=== PATIENT | male | born 1975 | race Caucasian/White ===

== ENCOUNTER 2018-08-14 08:17 | Inpatient (IN) | payer BC, MEDICAID ==
[~2018-08-14] VITALS: Ht 188 cm; Wt 130.4 kg
[~2018-08-14 08:17] MED LIST: FAMO-128 PO
[2018-08-14 09:03] LABS: BASOPHILS % (AUTO) 0.4 % (0-1); EOSINOPHILS # (AUTO) 0.2 X10'3 (0-0.9); EOSINOPHILS % (AUTO) 3.9 % (0-6); HEMATOCRIT 49.5 % (42.0-52.0); HEMOGLOBIN 17.1 g/dl (14.0-17.9); LYMPHOCYTES # (AUTO) 1.5 X10'3 (1.1-4.8); LYMPHOCYTES % (AUTO) 25.5 % (21-51); MEAN CORPUSCULAR HEMOGLOBIN 30.2 PG (27.0-31.0); MEAN CORPUSCULAR HGB CONC 34.6 g/dL (33.0-36.5); MEAN CORPUSCULAR VOLUME 87.2 FL (78-98); MEAN PLATELET VOLUME 8.7 FL (7.4-10.4); MONOCYTES # (AUTO) 0.7 X10'3 (0-0.9); MONOCYTES % (AUTO) 11.5 % (2-12); NEUTROPHILS # (AUTO) 3.5 X10'3 (1.8-7.7); NEUTROPHILS % (AUTO) 58.7 % (42-75); PLATELET COUNT 198 X10'3 (140-440); RED BLOOD COUNT 5.67 X10'6 (4.70-6.10); WHITE BLOOD COUNT 5.9 X10'3 (4.5-11.0)
[2018-08-14 09:09] LABS: PARTIAL THROMBOPLASTIN TIME 29 SECONDS (22-32)
[2018-08-14 09:21] LABS: ALANINE AMINOTRANSFERASE 88 U/L (12-78); ALBUMIN 3.6 G/DL (3.4-5.0); ALBUMIN/GLOBULIN RATIO 1.1 (1.1-1.5); ALKALINE PHOSPHATASE 64 IU/L (46-116); ANION GAP 9 (8-16); ASPARTATE AMINO TRANSFERASE 38 U/L (10-37); BILIRUBIN,TOTAL 0.6 MG/DL (0.1-1.0); BLOOD UREA NITROGEN 18 MG/DL (7-18); BUN/CREATININE RATIO 19.1 (5.4-32.0); CALCIUM 8.9 MG/DL (8.5-10.1); CHLORIDE 104 MMOL/L (99-107); CREATININE 0.94 MG/DL (0.60-1.10); GLUCOSE 106 MG/DL (70-104); POTASSIUM 3.8 MMOL/L (3.5-5.1); SODIUM 138 MMOL/L (135-145); TOTAL CARBON DIOXIDE 24.6 MMOL/L (24-32); eGFR 88 ML/MIN
[2018-08-14] MEDS ORDERED: aspirin 81mg tab.chew PO ONE (09:45)
[2018-08-14] MEDS ORDERED: nitroGLYCERIN 0.4mg/hour patch TD ONE (09:45)
[2018-08-14] MEDS ORDERED: HYDROcodone/acetaminophen 5mg/325mg tablet PO PRN (09:55)
[2018-08-14] MEDS ORDERED: furosemide 10 MG/1 ML 10ml inj IV ONE (09:55)
[2018-08-14] MEDS ORDERED: nitroGLYCERIN 0.4mg SUBLingual tab SL PRN ×2 (09:55→13:40)
[2018-08-14] MEDS ORDERED: magnesium hydroxide 30ml (MOM) UD suspension PO PRN (09:55)
[2018-08-14] MEDS ORDERED: acetaminophen 325mg tablet PO PRN (09:55)
[2018-08-14] MEDS ORDERED: mag hydrox/Alum hydrox/simeth 30ml oral suspension PO PRN (09:55)
[2018-08-14] MEDS ORDERED: ondansetron/PF 4mg/2ml inj IV PRN (09:55)
[2018-08-14] MEDS ORDERED: morphine 4 MG/ML inj SYRINge IV PRN ×2 (09:55)
[2018-08-14] MEDS ORDERED: LIVER CLEANSE (10:14)
[2018-08-14] MEDS ORDERED: MULT-955 PO (10:14)
[2018-08-14] MEDS ORDERED: GARL600T2 PO (10:15)
[2018-08-14 10:24] LABS: HEMOGLOBIN A1C 5.3 % (4.5-6.2)
[2018-08-14 11:30] VITALS: BP 131/91
--- NOTE | 2018-08-14 11:30 | NUR ---
pt arrived via gurney with one staff. Pt walked to bed from door way. orientated to room call light with in reach bed in lowest position.
[2018-08-14] MEDS ORDERED: regadenoson 0.4mg/5ml syringe IV PRN (13:40)
[2018-08-14] MEDS ORDERED: aminophylline 250mg/10ml inj. IV PRN (13:40)
[2018-08-14] MEDS ORDERED: metoprolol tartrate 1mg/ml inj IV PRN (13:40)
--- NOTE | 2018-08-14 18:22 | NUR ---
Problems reprioritized. Patient report given, questions answered & plan of care reviewed with Antoine HAGER.
[2018-08-14 18:40] VITALS: BP 121/83
[2018-08-14] MEDS: furosemide 20 MG/2 ML vial IV SCH (20:01)
[2018-08-14] MEDS: metoprolol tartrate 50mg tablet PO SCH (20:01)
[2018-08-15] VITALS (11 sets, daily range): BP systolic 114–145; BP diastolic 77–94
[2018-08-15 05:33] LABS: ALBUMIN 3.6 G/DL (3.4-5.0); ANION GAP 9 (8-16); BLOOD UREA NITROGEN 19 MG/DL (7-18); BUN/CREATININE RATIO 16.8 (5.4-32.0); CALCIUM 8.6 MG/DL (8.5-10.1); CHLORIDE 100 MMOL/L (99-107); CHOL/HDL RATIO 4.5 (0.00-4.99); CHOLESTEROL 166 MG/DL (0-200); CREATININE 1.13 MG/DL (0.60-1.10); GLUCOSE 95 MG/DL (70-104); HDL CHOLESTEROL 37 MG/DL (35-60); LDL CHOLESTEROL 111 MG/DL (50-100); SODIUM 137 MMOL/L (135-145); TOTAL CARBON DIOXIDE 27.8 MMOL/L (24-32); TRIGLYCERIDES 179 MG/DL (20-135); eGFR 71 ML/MIN
[2018-08-15 05:36] LABS: POTASSIUM 3.6 MMOL/L (3.5-5.1)
--- NOTE | 2018-08-15 06:21 | NUR ---
Problems reprioritized. Patient report given, questions answered & plan of care reviewed with Addendum: 08/15/18 at 0621 by Ray George RN Amended: Links added.
[2018-08-15 06:24] LABS: HEMATOCRIT 49.4 % (42.0-52.0); HEMOGLOBIN 17.2 g/dl (14.0-17.9); MEAN CORPUSCULAR HEMOGLOBIN 30.5 PG (27.0-31.0); MEAN CORPUSCULAR VOLUME 87.4 FL (78-98); RED BLOOD COUNT 5.65 X10'6 (4.70-6.10); WHITE BLOOD COUNT 8.8 X10'3 (4.5-11.0)
[2018-08-15 06:25] LABS: BASOPHILS % (AUTO) 0.3 % (0-1); EOSINOPHILS # (AUTO) 0.3 X10'3 (0-0.9); LYMPHOCYTES # (AUTO) 2.2 X10'3 (1.1-4.8); LYMPHOCYTES % (AUTO) 24.9 % (21-51); MEAN CORPUSCULAR HGB CONC 34.9 g/dL (33.0-36.5); MEAN PLATELET VOLUME 9.2 FL (7.4-10.4); MONOCYTES # (AUTO) 0.8 X10'3 (0-0.9); MONOCYTES % (AUTO) 9.3 % (2-12); NEUTROPHILS # (AUTO) 5.5 X10'3 (1.8-7.7); NEUTROPHILS % (AUTO) 62.5 % (42-75); PLATELET COUNT 199 X10'3 (140-440); RED CELL DISTRIBUTION WIDTH 13.1 % (11.5-14.5)
[2018-08-15] MEDS ORDERED: enoxaparin 40mg/0.4ml syringe SUBCUT SCH (08:00)
[2018-08-15] MEDS: furosemide 20 MG/2 ML vial IV SCH (08:00)
[2018-08-15] MEDS ORDERED: aspirin 81mg tablet.DR PO SCH (08:00)
[2018-08-15] MEDS: metoprolol tartrate 50mg tablet PO SCH (08:00)
[2018-08-15] MEDS ORDERED: nitroGLYCERIN 0.4mg/hour patch TD SCH (08:00)
[2018-08-15] MEDS ORDERED: aminophylline inj. 10 ML IV ONE (09:08)
[2018-08-15] MEDS ORDERED: regadenoson 0.4mg/5ml syringe IV ONE (09:08)
[2018-08-15] MEDS ORDERED: METO50TA16 PO (14:14)
[2018-08-15] MEDS ORDERED: SPIR25TA PO (14:14)
[2018-08-15] MEDS ORDERED: ASPI-1071 PO (14:14)
[2018-08-15] MEDS ORDERED: ATOR10TA PO (14:15)
--- NOTE | 2018-08-15 14:49 | NUR ---
D/C INSTRUCTIONS REVIEWED WITH PT. PT AGREES WITH D/C WAITING FOR RIDE.
--- NOTE | 2018-08-15 15:13 | NUR ---
PT ESCORTED TO LOBBY IN W/C WITH ONE STAFF WITH ALL BELONGINGS.
== END 2018-08-15 15:11 | disposition home or self-care (01) | DRG 198 ==
LOC: ER 08:18 → ED HOLD 09:53 → SUR 3N 11:30
PROVIDERS: ADMIT Internal Medicine; ATTEND Family Medicine
PROC: 4A02XM4 Measurement of Cardiac Total Activity, External Approach (ICD-10-PCS; principal; 2018-08-15)
PROC: 3E033HZ Introduction of Radioactive Substance into Peripheral Vein, Percutaneous Approach (ICD-10-PCS; 2018-08-15)
DX: I20.9 Angina pectoris, unspecified (principal); N17.9 Acute kidney failure, unspecified; I27.81 Cor pulmonale (chronic); E66.01 Morbid (severe) obesity due to excess calories; I10 Essential (primary) hypertension; E78.5 Hyperlipidemia, unspecified; G47.30 Sleep apnea, unspecified; Z82.49 Family history of ischemic heart disease and other diseases of the circulatory system; Z87.891 Personal history of nicotine dependence; Z86.14 Personal history of Methicillin resistant Staphylococcus aureus infection; Z68.36 Body mass index [BMI] 36.0-36.9, adult; Z90.49 Acquired absence of other specified parts of digestive tract
CPT/HCPCS: 36415; 71045; 78452; 80048; 80053; 80061; 83036; 83880; 84484; 85025; 85610; 85730; 87070; 93005; 93017; 93306; 99285; A9500; G0378; J0280; J1940